=== PATIENT | female | born 1970 | race Hispanic/Latino ===

== ENCOUNTER 2025-10-08 17:07 | Emergency (ER) | payer OTHER, MEDICAID ==
[~2025-10-08] VITALS: Ht 152.4 cm; Wt 73.0 kg
== END 2025-10-08 18:54 | disposition home or self-care (01) ==
LOC: ED 17:07
DX: M25.511 Pain in right shoulder (principal); V89.2XXA Person injured in unspecified motor-vehicle accident, traffic, initial encounter; I10 Essential (primary) hypertension
CPT/HCPCS: 99284